=== PATIENT | female | born 1960 | race Caucasian/White ===

== ENCOUNTER 2021-07-21 12:01 | Inpatient (IN) | payer OTHER ==
[2021-07-21 12:35] VITALS: BMI 22.4
[2021-07-21] MEDS ORDERED: diazePAM 5 MG TABLET PO PRN (17:08)
[2021-07-21] MEDS ORDERED: NICOTINE POLACRILEX 2 MG GUM BUC PRN (17:08)
[2021-07-21] MEDS ORDERED: MAG HYDROX/AL HYDROX/SIMETH 30 ML UNIT-DOSE CUP PO PRN (17:08)
[2021-07-21] MEDS ORDERED: MENTHOL/PHENOL 1 EACH UD MM PRN (17:08)
[2021-07-21] MEDS ORDERED: IBUPROFEN 400 MG TABLET (FP) PO PRN (17:08)
[2021-07-21] MEDS ORDERED: MAGNESIUM HYDROX 2400MG/30ML ORAL SUSPENSION 30 ML CUP PO PRN (17:08)
[2021-07-21] MEDS ORDERED: BISMUTH SUBSALICYLATE 524 MG/30 ML PO PRN (17:08)
[2021-07-21] MEDS ORDERED: ACETAMINOPHEN 325 MG TABLET (FP) PO PRN ×2 (17:08)
[2021-07-21] MEDS ORDERED: MAGNESIUM CITRATE 300 ML BOTTLE PO PRN (17:08)
[2021-07-21] MEDS ORDERED: ONDANSETRON *ODT* 4 MG TABLET SL PRN (17:08)
[2021-07-21] MEDS: NICOTINE 21 MG/24 HOURS TOPICAL PATCH TD SCH (17:57)
[2021-07-21] MEDS: hydrOXYzine PAMOATE 25 MG CAPSULE (FP) PO SCH ×2 (17:57→22:16)
[2021-07-21] MEDS ORDERED: MELATONIN 5 MG TABLETS PO SCH (22:00)
[2021-07-21] MEDS: THIAMINE HCL 100 MG TABLET (FP) PO SCH (22:16)
[2021-07-21] MEDS: diazePAM 5 MG TABLET PO SCH (22:17)
[2021-07-22] MEDS: hydrOXYzine PAMOATE 25 MG CAPSULE (FP) PO SCH ×5 (05:58→22:43)
[2021-07-22] MEDS: diazePAM 5 MG TABLET PO SCH ×4 (05:59→22:43)
[2021-07-22] MEDS: METHOCARBAMOL 500 MG TABLET PO PRN (10:36)
[2021-07-22] MEDS: NICOTINE 21 MG/24 HOURS TOPICAL PATCH TD SCH (10:36)
[2021-07-22] MEDS: FLUoxetine HCL 20 MG CAPSULE PO SCH (10:36)
[2021-07-22] MEDS: PRENATAL VITAMINS W/ FOLIC ACID TABLET (FP) PO SCH (10:38)
[2021-07-22 11:14] LABS: HEMOGLOBIN 11.1 GM/dL (10.7-15.3); MCH 28.3 pg (25.7-33.7); MCHC 32.7 g/dl (32.0-36.0); MEAN CELL VOLUME 86.7 fl (80-96); MEAN PLT VOLUME 6.8 fl (7.5-11.1); PLATELET COUNT 350 10^3/uL (134-434); RBC 3.93 M/mm3 (3.60-5.2); RDW 16.8 % (11.6-15.6); WHITE BLOOD COUNT 4.1 K/mm3 (4.0-10.0)
[2021-07-22 11:25] LABS: ALBUMIN 3.3 g/dl (3.4-5.0); BLOOD UREA NITROGEN 13.3 mg/dL (7-18); CREATININE 0.5 mg/dL (0.55-1.3)
[2021-07-22 11:27] LABS: BILIRUBIN,TOTAL 0.5 mg/dL (0.2-1); CALCIUM 9.2 mg/dL (8.5-10.1); TOT PROT 6.3 g/dl (6.4-8.2)
[2021-07-22] MEDS: THIAMINE HCL 100 MG TABLET (FP) PO SCH (22:43)
[2021-07-22] MEDS: QUEtiapine FUMARATE 100 MG TABLET (FP) PO SCH (22:43)
[2021-07-23] MEDS: hydrOXYzine PAMOATE 25 MG CAPSULE (FP) PO SCH ×5 (06:57→22:19)
[2021-07-23] MEDS: diazePAM 5 MG TABLET PO SCH ×3 (06:57→22:19)
[2021-07-23] MEDS: PRENATAL VITAMINS W/ FOLIC ACID TABLET (FP) PO SCH (10:32)
[2021-07-23] MEDS: FLUoxetine HCL 20 MG CAPSULE PO SCH (10:32)
[2021-07-23] MEDS: METHOCARBAMOL 500 MG TABLET PO PRN (10:32)
[2021-07-23] MEDS: NICOTINE 21 MG/24 HOURS TOPICAL PATCH TD SCH (10:33)
[2021-07-23] MEDS: THIAMINE HCL 100 MG TABLET (FP) PO SCH (22:19)
[2021-07-23] MEDS: QUEtiapine FUMARATE 100 MG TABLET (FP) PO SCH (22:19)
[2021-07-24] MEDS ORDERED: diazePAM 5 MG TABLET PO SCH (06:00)
[2021-07-24] MEDS: hydrOXYzine PAMOATE 25 MG CAPSULE (FP) PO SCH ×2 (06:52→10:41)
[2021-07-24 09:17] VITALS: BP 139/87; PULSE 90; TEMP 98
[2021-07-24] MEDS: PRENATAL VITAMINS W/ FOLIC ACID TABLET (FP) PO SCH (10:36)
[2021-07-24] MEDS: FLUoxetine HCL 20 MG CAPSULE PO SCH (10:41)
[2021-07-24] MEDS: METHOCARBAMOL 500 MG TABLET PO PRN (10:41)
[2021-07-24] MEDS: NICOTINE 21 MG/24 HOURS TOPICAL PATCH TD SCH (10:42)
[2021-07-25] MEDS ORDERED: diazePAM 5 MG TABLET PO ONE (06:00)
== END 2021-07-24 12:35 | disposition home or self-care (01) | DRG 897 ==
LOC: YASAS 12:01 → Y6N 17:02
PROVIDERS: ADMIT Allergy & Immunology; ATTEND Allergy & Immunology
PROC: HZ2ZZZZ Detoxification Services for Substance Abuse Treatment (ICD-10-PCS; principal; 2021-07-21)
DX: F10.230 Alcohol dependence with withdrawal, uncomplicated (principal); F10.24 Alcohol dependence with alcohol-induced mood disorder; F10.282 Alcohol dependence with alcohol-induced sleep disorder; F10.280 Alcohol dependence with alcohol-induced anxiety disorder; F13.230 Sedative, hypnotic or anxiolytic dependence with withdrawal, uncomplicated; F17.213 Nicotine dependence, cigarettes, with withdrawal; F41.9 Anxiety disorder, unspecified; F32.A Depression, unspecified; G47.00 Insomnia, unspecified; Z62.810 Personal history of physical and sexual abuse in childhood; Z98.84 Bariatric surgery status
CPT/HCPCS: 36415; 80053; 85027; 86780; 93005; 93010; C9803; U0003; U0005